=== PATIENT | female | born 1960 | race Caucasian/White ===

== ENCOUNTER → 2021-03-05 08:47 | Outpatient (CLI) | payer BC, SELFPAY ==
--- NOTE | ~2021-03-05 | CT_ITS ---
EXAMINATION: CT abdomen wo con EXAM DATE: 03/05/2021 09:05 INDICATION: Chronic idiopathic constipation . TECHNIQUE: Spiral CT of the abdomen was performed without contrast. Axial, coronal and sagittal shari ges of the abdomen were reviewed. The dose-length product (DLP) for this examination was 446.29 mGy- cm. The exposure was tailored according to patient size (auto mA exposure control), and iterative re construction (ASIR) was used as additional dose reduction technique. There is no prior study for katie huerta. FINDINGS: The liver, spleen, adrenal glands and pancreas are unremarkable. Gallbladder is unremarkab le. No biliary obstruction. There is a horseshoe kidney, congenital variant. There is no nephrolith iasis or hydronephrosis. There is no retroperitoneal lymphadenopathy. There is mild to moderate scattered arteriosclerotic disease. The appendix is normal. The stomach and small bowel are unremarkable. There is moderate amount of c olonic stool. There is moderate scattered colonic diverticulosis. There is no adjacent inflammatory change to suggest diverticulitis. No free intraperitoneal gas. The heart is normal in size. There are no pericardial or pleural effusions. The lung bases are unremarkable. There are no osteoblasti c or osteolytic lesions identified. Mild chronic appearing compression fracture of L1. IMPRESSION: 1. Moderate amount of colonic stool and scattered colonic diverticula. 2. Horseshoe kidney. Reviewed, dictated and finalized at location A. [employer] [employer]IS[employer]
== END ==
PROVIDERS: Visit Provider Nurse Practitioner Family
DX: K59.04 Chronic idiopathic constipation (principal); Q63.1 Lobulated, fused and horseshoe kidney
CPT/HCPCS: 74150

== ENCOUNTER 2021-08-08 15:53 | Outpatient (CLI) | payer BC, SELFPAY ==
[2021-08-08 16:13] LABS: Hematocrit 44.4 % (37.0-47.0); Hemoglobin 14.9 g/dL (12.0-15.0); Mean Corpuscular HGB Conc 33.6 g/dl (32-36); Mean Corpuscular Hemoglobin 30.9 pg (26-34); Mean Corpuscular Volume 92.1 fl (80-100); Mean Platelet Volume 10.2 fl (7.4-10.4); Platelet Count Result 194 k/mm3 (150-375); Red Blood Count 4.82 M/mm3 (4.2-5.4); Red Cell Distribution Width 12.8 % (11.5-14.5); White Blood Count 9.2 K/mm3 (4.5-10.0)
[2021-08-08 16:53] LABS: Appearance Urine Clear (Clear); Bilirubin Urine Negative (Negative); Blood Urine Negative (Negative); Color Urine Yellow (Yellow); Glucose Urine UA Negative (Negative); Ketones Urine Negative (Negative); Leukocyte Esterase Ur 1+ LEU/UL (Negative); Nitrate Urine Negative (Negative); Protein Urine Negative (Negative); Urobilinogen Urine 0.2 mg/dL (<2.0)
[2021-08-08 17:04] LABS: Bacteria Urine Trace /hpf; Mucus Urine Rare /lpf; Renal Epithelial Cells Urine Rare /hpf (None Seen); Squamous Epithelial Cell Urine Occasional /hpf (Few); WBC Urine 16-20 /hpf
[2021-08-08 17:05] LABS: Add Urine Microscopic? YES
[2021-08-08 19:57] LABS: Alanine Aminotransferase 232 U/L (6-35); Albumin Level 4.3 g/dL (3.5-5.1); Alkaline Phosphatase 118 U/L (38-126); Anion Gap 8 mmol/L (8-16); Aspartate Amino Transferase 215 U/L (14-36); Bilirubin,Total 0.7 mg/dL (0.2-1.3); Blood Urea Nitrogen 9 mg/dL (7-17); Carbon Dioxide 28 mmol/L (22-30); Chloride 103 mmol/L (98-107); Estimated Glomerular Filt Rate > 60; Glucose 181 mg/dL (65-110); Potassium 3.9 mmol/L (3.4-5.0); Sodium 139 mmol/L (137-145)
== END 2021-08-08 15:54 | disposition home or self-care (01) ==
LOC: ANHLAB 15:55
PROVIDERS: PCP Nurse Practitioner Family; Visit Provider Nurse Practitioner Family
DX: R74.8 Abnormal levels of other serum enzymes (principal); R11.2 Nausea with vomiting, unspecified; R10.11 Right upper quadrant pain
CPT/HCPCS: 36415; 80053; 81001; 85027; 87086

== ENCOUNTER 2021-08-12 15:19 | Outpatient (CLI) | payer BC, SELFPAY ==
[2021-08-12 16:01] LABS: Iron 139 ug/dL (37-170)
[2021-08-12 16:10] LABS: Percent Iron Saturation 47 % (20-50)
[2021-08-12 17:35] LABS: Hepatitis B Surface Antigen Negative (Negative)
[2021-08-12 17:41] LABS: HAV RESULT Negative (Negative); Hepatitis B Core IgM Result Negative (Negative)
[2021-08-12 17:53] LABS: Hepatitis C Virus Antibody Negative (Negative)
[2021-08-14 22:10] LABS: Alpha-1-Antitrypsin, QN 169 mg/dL (83-199); Ceruloplasmin 29 mg/dL (18-53)
[2021-08-15 12:42] LABS: Mitochondrial (M2) Ab (IgG) <=20.0 U (<=20.0)
[2021-08-16 11:31] LABS: LKM 1 Antibody <=20.0 U (<=20.0)
[2021-08-16 15:21] LABS: ALT 150 U/L (6-29); Alpha-2-Macroglobulin 313 mg/dL (106-279); Apolipoprotein A1 180 mg/dL (101-198); Fibrosis Score 0.57; Fibrosis Stage F2; GGT 202 U/L (3-65); Haptoglobin 84 mg/dL (43-212); Necroinflammat Act Grade A3; Total Bilirubin 0.5 mg/dL (0.2-1.2)
[2021-08-16 19:33] LABS: Alpha Fetoprotein Tumor Marker 5.1 ng/mL (<6.1)
== END 2021-08-12 15:20 | disposition home or self-care (01) ==
LOC: ANHLAB 15:21
PROVIDERS: PCP Nurse Practitioner Family; Visit Provider Nurse Practitioner Family
DX: R74.8 Abnormal levels of other serum enzymes (principal)
CPT/HCPCS: 36415; 80074; 81596; 82103; 82105; 82390; 82728; 83520; 83540; 83550; 86376

== ENCOUNTER 2021-08-19 09:50 | Emergency (ER) | payer BC, SELFPAY ==
[2021-08-19] VITALS (17 sets, daily range): BP systolic 113–160; BP diastolic 53–68; PULSE 79–96; RESP 11–26; TEMP 36.6; O2SAT 96–99
--- NOTE | ~2021-08-19 | CT_ITS ---
EXAMINATION: CT abdomen pelvis w con DATE: 08/19/2021 11:50 INDICATION: Epigastric abdominal pain. Elevated liver enzymes. TECHNIQUE: Computed tomography (CT) of the abdomen and pelvis was performed with 100 CC Omnipaque 300 intravenous contrast. Automated exposure control and iterative reconstruction technique were employe d. Exam dose: 422.93 mGy-cm total exam DLP. COMPARISON: 08/19/2021 right upper quadrant abdominal ultrasound examination, reported normal 03/05/2021 CT abdomen FINDINGS: The lung bases are clear of infiltrate or consolidation. Normal heart size. No pericardial or pleural effusion. There is patchy steatosis of the liver. No hepatic space-occupying mass lesion is evident. The gallbl adder is present. No gallbladder wall thickening or pericholecystic fluid or fat stranding. No bile d uct dilatation. Splenic size is within normal limits. Normal morphology of the adrenal glands. Horseshoe kidney. Approximately 1.4 x 2 cm right renal cyst. No urinary tract calculus or hydroureter onephrosis. The urinary bladder is unremarkable. Status post hysterectomy. There is atherosclerotic calcification of the abdominal aorta but no aneurysm. Presents, calcificatio n of the iliac and femoral arteries. 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 No intraperitoneal or retroperitoneal or pelvic mass lesion or adenopathy or ascites. Normal appendix. Diverticulosis of left and right colon; no CT evidence of diverticulitis. No bowel obstruction, bowel wall thickening, pneumatosis or intraperitoneal free air. Chronic mild anterior wedge compression fracture deformity of L1, present on 03/05/2021 is well. No marquez spicious osteolytic or osteoblastic lesions. IMPRESSION: Horseshoe kidney 1.4 x 2 cm right renal cyst Hepatic steatosis Status post hysterectomy Normal appendix Diverticulosis of the colon; no evidence of diverticulitis Chronic L1 mild compression fracture deformity Reviewed, dictated and finalized at Location [facility]. Reviewed, dictated and finalized at location B.
--- NOTE | ~2021-08-19 | US_ITS ---
EXAMINATION: US right upper quadrant DATE: 08/19/2021 10:45 INDICATION: Abdominal pain and vomiting TECHNIQUE: Multiple grayscale and Doppler ultrasound images of the abdomen were obtained. COMPARISON: None available FINDINGS: Bowel gas obscures visualization of the pancreas. The visualized portions of the pancreas a re unremarkable. The liver is normal with normal echogenicity and echotexture. No surface nodularity. Normal hepatopetal flow in the main portal vein. The gallbladder is normal with no abnormal wall thi ckening, pericholecystic fluid or stones. The normal common bile duct measures 3 mm. There was no son ographic Arora sign. IMPRESSION: 1. Normal sonographic study of the gallbladder. Reviewed, dictated and finalized at location A.
--- NOTE | 2021-08-19 10:30 | PC.NURSE ---
Patient off unit to US.
[2021-08-19] MEDS: MORPHINE SULFATE (*CRX) 4 MG/ML INJ IV PUSH (10:58)
[2021-08-19] MEDS: ONDANSETRON INJ 4 MG/2 ML VIAL IV PUSH ×2 (10:58→14:23)
[2021-08-19 11:09] LABS: Basophils Absolute Auto 0.1 K/mm3 (0.0-0.1); Basophils Percent Auto 0.4 % (0.2-1.2); Eosinophils Absolute Auto 0.1 K/mm3 (0-0.3); Eosinophils Percent Auto 0.4 % (0-4.4); Hematocrit 44.1 % (37.0-47.0); Immature Granulocyte Percent A 0.7 % (0-0.5); Lymphocytes Absolute Auto 1.86 K/mm3 (0.9-3.2); Lymphocytes Percent Auto 13.5 % (18.3-44.2); Mean Corpuscular Hemoglobin 30.7 pg (26-34); Mean Corpuscular Volume 90.2 fl (80-100); Mean Platelet Volume 10.7 fl (7.4-10.4); Monocytes Absolute Auto 0.9 K/mm3 (0.1-0.6); Monocytes Percent Auto 6.5 % (2.6-8.5); Neutrophils Absolute Auto 10.8 K/mm3 (1.3-6.7); Neutrophils Percent Auto 78.5 % (45.5-73.1); Platelet Count Result 167 k/mm3 (150-375); Red Blood Count 4.89 M/mm3 (4.2-5.4); Red Cell Distribution Width 12.6 % (11.5-14.5); White Blood Count 13.8 K/mm3 (4.5-10.0)
[2021-08-19 11:25] LABS: Appearance Urine Clear (Clear); Bilirubin Urine Negative (Negative); Color Urine Yellow (Yellow); Glucose Urine UA 1+ mg/dL (Negative); Ketones Urine Negative (Negative); Leukocyte Esterase Ur 2+ LEU/UL (Negative); Nitrate Urine Negative (Negative); Protein Urine Trace mg/dL (Negative); Specific Grav Ur 1.015 (1.001-1.035); pH Urine 7.5 (5.0-9.0)
[2021-08-19 11:27] LABS: Alanine Aminotransferase 144 U/L (6-35); Albumin Level 4.3 g/dL (3.5-5.1); Alkaline Phosphatase 151 U/L (38-126); Anion Gap 4 mmol/L (8-16); Aspartate Amino Transferase 103 U/L (14-36); Bilirubin,Total 0.6 mg/dL (0.2-1.3); Blood Urea Nitrogen 15 mg/dL (7-17); Calcium 8.6 mg/dL (8.4-10.2); Carbon Dioxide 30 mmol/L (22-30); Chloride 104 mmol/L (98-107); Estimated CRCL calculation 68 ml/min; Estimated Glomerular Filt Rate > 60; Glucose 204 mg/dL (65-110); Lipase 176 U/L (23-300); Potassium 4.1 mmol/L (3.4-5.0); Sodium 138 mmol/L (137-145)
[2021-08-19 11:27] LABS: Add Urine Microscopic? YES; Blood Urine Trace-Intact (Negative)
[2021-08-19 11:28] LABS: Bacteria Urine Trace /hpf; RBC Urine 0-2 /hpf (0-2); Squamous Epithelial Cell Urine Rare /hpf (Few)
--- NOTE | 2021-08-19 13:36 | ED.GENADULT ---
HPI - General Adult General Chief complaint: Abdominal Pain Stated complaint: liver enzymes high and vomiting Time Seen by Provider: 08/19/21 10:05 History of Present Illness HPI narrative: Patient is a 61-year-old female who presents ER with epigastric discomfort and nausea/vomiting. Ongoing for a couple months. Reports she has seen her PCP and her LFTs are elevated. She is scheduled for an ultrasound this weekend. No pain with eating or drinking. Occasionally discomfort goes into her back. No fevers or chills or sweats. Denies urinary frequency urgency or dysuria. Related Data Home Medications Medication Instructions Recorded Confirmed omeprazole 20 mg capsule,delayed 20 mg PO DAILY 08/16/21 08/16/21 release Allergies Allergy/AdvReac Type Severity Reaction Status Date / Time No Known Allergies Allergy Verified 08/19/21 10:58 Review of Systems Review of Systems: All systems reviewed & are unremarkable except as noted in HPI and below Constitutional: Constitutional: Denies chills, Denies fatigue and Denies fever(s) Cardiovascular: Cardiovascular: Denies chest pain and Denies rapid heart rate Respiratory: Respiratory: Denies chest congestion, Denies cough and Denies dyspnea Gastrointestinal: Gastrointestinal: Reports abdominal pain, Reports bloating, Reports nausea and Reports vomiting Genitourinary: Genitourinary: Denies nocturia, Denies dysuria and Denies flank pain Neurologic: Denies focal weakness and Denies numbness PMFSH Past Medical History Medical History (Updated 08/19/21 @ 13:44 by Matthew Cantu MD) Abdominal bloating Cataract associated with other syndromes Cervical vertebral fusion Elevated liver enzymes Nausea and vomiting Right upper quadrant pain Surgical History Surgical History (Updated 08/08/21 @ 14:57 by Ruddy Angeles) Hx of abdominal hysterectomy Social History Social History Smoking status: Former smoker Tobacco type: cigarettes Alcohol intake: current Alcohol use details: 1-2 times annually Substance use: never Substance use type: does not use Spiritual care concerns: No Exam Narrative: GENERAL: Well-appearing, well-nourished, and in no acute distress. HEAD: Normocephalic, atraumatic. ENT: Mucous membranes moist. CHEST: Clear to auscultation. No respiratory distress. HEART: Regular rate and rhythm. Normal peripheral pulses. ABDOMEN: Soft, nontender, nondistended. EXTREMITIES: Normal range of motion. No edema. SKIN: Warm, dry, no rash. NEURO: Alert and oriented x3. PSYCH: Normal mood and affect. Course Course Emergency Course: Nonsurgical abdomen on exam. Labs benign with exception of LFTs which are improved from earlier in the month. Ultrasound with fatty liver. Urine with a few whites with 2+ leuks and trace bacteria. Will send home on some Macrobid. Will increase omeprazole from 20 daily to 40 twice daily. Vital Signs Vital signs: Vital Signs Temperature 97.8 F 08/19/21 10:00 Pulse Rate 96 08/19/21 10:00 Respiratory Rate 26 H 08/19/21 10:00 Blood Pressure 160/68 H 08/19/21 10:00 Pulse Oximetry 98 08/19/21 10:00 Oxygen Delivery Room Air 08/19/21 10:00 Temperature 97.8 F 08/19/21 10:00 Pulse Rate 89 08/19/21 12:52 Respiratory Rate 14 08/19/21 12:52 Blood Pressure 141/63 H 08/19/21 11:01 Pulse Oximetry 96 08/19/21 12:52 Oxygen Delivery Room Air 08/19/21 10:00 Medical Decision Making Vital Signs Vital Signs: Vital Signs Temperature 97.8 F 08/19/21 10:00 Pulse Rate 96 08/19/21 10:00 Respiratory Rate 26 H 08/19/21 10:00 Blood Pressure 160/68 H 08/19/21 10:00 Pulse Oximetry 98 08/19/21 10:00 Oxygen Delivery Room Air 08/19/21 10:00 Temperature 97.8 F 08/19/21 10:00 Pulse Rate 89 08/19/21 12:52 Respiratory Rate 14 08/19/21 12:52 Blood Pressure 141/63 H 08/19/21 11:01 Pulse Oximetry 96 08/19/21 12:52 Oxygen Delivery Room Air 07/25
== END 2021-08-19 15:08 | disposition home or self-care (01) ==
PROVIDERS: Emergency Provider Emergency Medicine
DX: N39.0 Urinary tract infection, site not specified (principal); K21.9 Gastro-esophageal reflux disease without esophagitis; K76.0 Fatty (change of) liver, not elsewhere classified; Z87.891 Personal history of nicotine dependence; N28.1 Cyst of kidney, acquired; Q63.1 Lobulated, fused and horseshoe kidney; K57.90 Diverticulosis of intestine, part unspecified, without perforation or abscess without bleeding; H26.8 Other specified cataract; Z90.710 Acquired absence of both cervix and uterus
CPT/HCPCS: 36415; 74177; 76705; 80053; 81001; 83690; 85025; 87086; 87088; 96374; 96375; 96376; 99284; J2270; J2405; Q9967

== ENCOUNTER 2021-08-28 01:02 | Day surgery (SDC) | payer BC, SELFPAY ==
[2021-08-16 15:12] VITALS: BMI 30.3
--- NOTE | 2021-08-27 14:56 | PM.HPGS ---
History of Present Illness History of Present Illness Consent: Risks, benefits, and alternatives have been discussed and questions answered. Patient agrees to proceed with procedure. Chief complaint: nausea, vomiting, constipation Narrative: Zoila Senior is a 61 year old female With constipation, bloating gas, abdominal pain, vomiting, nausea and elevated liver enzymes.? she reports hx of chronic constipation for as long as she can remember.? States she will pass thin stools with straining and rectal pain.? She was started on Linzess 145 mg? daily.? Reports now having approximately 3 watery stools in the a.m. For the past 2 months she reports daily nausea with intermittent vomiting.?? she also has elevated liver enzymes for which she has been seen in our office and she has a follow-up appointment in about 7 weeks. Review of Systems Review of Systems: All systems reviewed & are unremarkable except as noted in HPI and below PMFSH Past Medical History Medical History Abdominal bloating Cataract associated with other syndromes Cervical vertebral fusion Elevated liver enzymes Nausea and vomiting Right upper quadrant pain Surgical History Surgical History Hx of abdominal hysterectomy S/P cervical spinal fusion Social History Social History Smoking status: Former smoker Tobacco type: cigarettes Alcohol intake: current Alcohol use details: 1-2 times annually Substance use: never Substance use type: does not use Spiritual care concerns: No Meds Home Medications and Allergies Home Medications Medication Instructions Recorded Confirmed Type sodium sul 1.479 gram-potas ch See Rx Instructions PO PER PKG DIR 08/12/21 08/28/21 Rx 0.188 gram-magnes sul 0.225 gram #24 tabs tablet (Sutab) linaclotide 72 mcg capsule 72 mcg PO DAILY #30 caps 08/13/21 08/28/21 Rx (Linzess) omeprazole 20 mg capsule,delayed 20 mg PO DAILY 08/16/21 08/28/21 History release omeprazole 40 mg capsule,delayed 40 mg PO BID #28 caps 08/19/21 08/28/21 Rx release Allergies Allergy/AdvReac Type Severity Reaction Status Date / Time No Known Allergies Allergy Verified 08/28/21 09:48 Exam Const: General: alert Orientation/consciousness: patient oriented x3 Resp: Auscultation: clear to auscultation bilaterally Cardio: Rhythm: regular rhythm GI: GI Palp: Yes Soft to palpation and No Tenderness to palpation present (GI) Neuro: General: patient oriented x3 Assessment and Plan Assessment and plan (1) Nausea and vomiting: Code(s): R11.2 - Nausea with vomiting, unspecified Status: Acute Assessment and Plan: EGD with possible biopsy or dilatation or cautery. (2) Change in bowel habits: Code(s): R19.4 - Change in bowel habit Status: Acute Assessment and Plan: Colonoscopy with possible biopsy or polypectomy or cautery or injection of substances.
[2021-08-28 09:51] VITALS: BP 118/52; PULSE 74; RESP 16; TEMP 36.7; O2SAT 99
--- NOTE | 2021-08-28 09:57 | WPDANESEPPF ---
Anes - Initial Pre Proc Eval Procedure: Operation Date: 08/28/21 11:15 Proposed Procedures p Esophagogastroduodenoscopy & Colonoscopy - Uvaldo Cruz MD Date/Time: 08/28/21 09:57 Surgeon: Uvaldo Cruz MD Pre Op Diagnosis: nausea, vomiting, constipation Patient Data Age: 61 Gender: F Height: 1.55 m Weight: 72.2 kg Last Vital Signs Temp 36.7 C 08/28/21 09:51 Pulse 74 08/28/21 09:51 Resp 16 08/28/21 09:51 BP 118/52 L 08/28/21 09:51 Pulse Ox 99 08/28/21 09:51 O2 Del Method Room Air 08/28/21 09:51 Allergies Allergy/AdvReac Type Severity Reaction Status Date / Time No Known Allergies Allergy Verified 08/28/21 09:48 Home Medications Medication Instructions Recorded Confirmed Type sodium sul 1.479 gram-potas ch See Rx Instructions PO PER PKG DIR 08/12/21 08/28/21 Rx 0.188 gram-magnes sul 0.225 gram #24 tabs tablet (Sutab) linaclotide 72 mcg capsule 72 mcg PO DAILY #30 caps 08/13/21 08/28/21 Rx (Linzess) omeprazole 20 mg capsule,delayed 20 mg PO DAILY 08/16/21 08/28/21 History release omeprazole 40 mg capsule,delayed 40 mg PO BID #28 caps 08/19/21 08/28/21 Rx release Patient hx anesthesia problems: none Family hx anesthesia problems: none Results Review: All pre-operative results and documents have been reviewed as part of the pre-operative evaluation. [facility] Past Medical History Medical History Abdominal bloating Cataract associated with other syndromes Cervical vertebral fusion Elevated liver enzymes Nausea and vomiting Right upper quadrant pain Surgical History Surgical History (Updated 08/28/21 @ 09:57 by Jose Robles MD) Hx of abdominal hysterectomy S/P cervical spinal fusion Social History Social History Smoking status: Former smoker Tobacco type: cigarettes Alcohol intake: current Alcohol use details: 1-2 times annually Substance use: never Substance use type: does not use Spiritual care concerns: No Anes - Eval Final PreProcedure Day of Procedure 08/28/21 09:57 Patient weight: obese Heart: regular rate and rhythm Lungs: clear to auscultation Airway: Mallampati scale class II Neurological: alert and oriented Last oral intake: >/= 8 hours ASA classification: II Emergent: no Anesthetic plan: proceed Anesthesia type and monitoring: general GIVS and standard monitoring Results Review: All pre-operative results and documents have been reviewed as part of the pre-operative evaluation. Informed Consent: The patient's anesthetic plan and its attendant risks and benefits were discussed with the patient/family/POA. Questions were solicited and answers provided to the satisfaction of the patient/family/POA.
[2021-08-28] MEDS: LACTATED RINGERS 1,000 ML 150 ML IV CONT (10:29)
--- NOTE | 2021-08-28 10:53 | SUR.OPER ---
EGD: [id number] Colonoscopy began at 1053
[2021-08-28 11:08] VITALS: BP 124/62; PULSE 74; RESP 22; O2SAT 100
[2021-08-28 11:18] VITALS: BP 152/85; PULSE 78; RESP 20; O2SAT 99
[2021-08-28 11:28] VITALS: BP 165/80; PULSE 72; RESP 20; O2SAT 99
== END 2021-08-28 11:39 | disposition home or self-care (01) ==
PROVIDERS: Visit Provider Internal Medicine Gastroenterology
PROC: 0DJ08ZZ Inspection of Upper Intestinal Tract, Via Natural or Artificial Opening Endoscopic (ICD-10-PCS; CPT 43235; principal; 2021-08-28 11:15)
DX: Z12.11 Encounter for screening for malignant neoplasm of colon (principal); K63.5 Polyp of colon; K57.30 Diverticulosis of large intestine without perforation or abscess without bleeding; R10.11 Right upper quadrant pain; R11.2 Nausea with vomiting, unspecified; K21.9 Gastro-esophageal reflux disease without esophagitis; K59.00 Constipation, unspecified; Z98.1 Arthrodesis status; R14.0 Abdominal distension (gaseous); R74.01 Elevation of levels of liver transaminase levels; Z87.891 Personal history of nicotine dependence; E66.9 Obesity, unspecified; Z68.30 Body mass index [BMI] 30.0-30.9, adult
CPT/HCPCS: 45380; 43239; 87081; 88305; J2704; J7120

== ENCOUNTER 2021-09-26 09:54 | Outpatient (CLI) | payer BC, SELFPAY ==
[2021-09-26 11:18] LABS: CRP 0.5 mg/dL (<1.0)
[2021-09-26 11:28] LABS: Erythrocyte Sedimentation Rate 13 mm/hr (0-20)
[2021-09-26 11:32] LABS: Iron 123 ug/dL (37-170)
[2021-09-26 11:41] LABS: Percent Iron Saturation 42 % (20-50)
== END 2021-09-26 09:55 | disposition home or self-care (01) ==
LOC: ANHLAB 09:56
PROVIDERS: Visit Provider Nurse Practitioner Family
DX: R14.0 Abdominal distension (gaseous) (principal); R74.8 Abnormal levels of other serum enzymes; R10.11 Right upper quadrant pain
CPT/HCPCS: 36415; 81256; 82728; 83540; 83550; 85652; 86140

== ENCOUNTER 2021-10-07 09:50 | Outpatient (CLI) | payer BC, SELFPAY ==
--- NOTE | ~2021-10-07 | NM_ITS ---
EXAMINATION: NM hepatobiliary wo pharm DATE: 10/07/2021 12:25 CDT INDICATION: Right upper quadrant pain COMPARISON: None. TECHNIQUE: 4.8 mCi Tc-99m mebrofenin (Choletec) was administered intravenously. Scintigraphic images of the abdomen were obtained for one hour. At the 1 hour time point, the patient drank 8 oz Ensure, and imaging was continued for 60 minutes. Gallbladder ejection fraction was calculated by the technol ogist. FINDINGS: There is normal clearance of radiotracer from the blood pool. There is homogeneous tracer u ptake by the liver. Activity progresses to the bowel and gallbladder. The gallbladder ejection fract ion is 32%. Note that with this technique, normal GBEF >= 33%. IMPRESSION: 1. Mildly decreased gallbladder ejection fraction measuring 32%. Reviewed, dictated and finalized at location B.
== END 2021-10-07 09:51 | disposition home or self-care (01) ==
LOC: ANHIMG 09:53
PROVIDERS: Visit Provider Nurse Practitioner Family
DX: R10.11 Right upper quadrant pain (principal)
CPT/HCPCS: 78226; A9537

== ENCOUNTER 2021-10-15 10:27 | Outpatient (CLI) | payer BC, SELFPAY ==
[2021-10-15 11:09] LABS: Appearance Urine Clear (Clear); Bilirubin Urine Negative (Negative); Blood Urine Negative (Negative); Color Urine Yellow (Yellow); Glucose Urine UA Negative (Negative); Ketones Urine Negative (Negative); Leukocyte Esterase Ur 3+ LEU/UL (Negative); Nitrate Urine Negative (Negative); Protein Urine Negative (Negative)
[2021-10-15 11:15] LABS: Mucus Urine Rare /lpf; RBC Urine 0-2 /hpf (0-2); Squamous Epithelial Cell Urine Moderate /hpf (Few)
[2021-10-15 11:15] LABS: Alanine Aminotransferase 143 U/L (6-35); Albumin Level 4.5 g/dL (3.5-5.1); Alkaline Phosphatase 143 U/L (38-126); Aspartate Amino Transferase 140 U/L (14-36)
[2021-10-15 11:17] LABS: Add Urine Microscopic? YES
[2021-10-15 11:41] LABS: Iron 159 ug/dL (37-170)
[2021-10-15 12:00] LABS: Percent Iron Saturation 54 % (20-50)
[2021-10-17 21:49] LABS: Actin Antibody (IgG) <20 U (<20)
== END 2021-10-15 10:28 | disposition home or self-care (01) ==
PROVIDERS: Visit Provider Nurse Practitioner Family
DX: K76.0 Fatty (change of) liver, not elsewhere classified (principal); R30.9 Painful micturition, unspecified; R74.8 Abnormal levels of other serum enzymes
CPT/HCPCS: 36415; 80076; 81001; 82728; 83516; 83540; 83550

== ENCOUNTER 2021-10-29 09:30 | Outpatient (CLI) | payer BC, SELFPAY ==
--- NOTE | ~2021-10-29 | NM_ITS ---
EXAM: NM gastric emptying study DATE: 10/29/2021 14:06 INDICATION: Nausea. Abdominal pain. Bloating after eating. TECHNIQUE: A gastric emptying study was performed using the methodology of Savanah CORTES, et al. J Nucl Med 2007; 48:568-572. The patient was given a meal consisting of 2 scrambled eggs labeled with 0.955 mCi Tc-99m sulfur colloid, 2 slices of toast, two packages of jam, and approximately 120 mL of water . Simultaneous anterior and posterior 1-min images of the abdomen were obtained with the patient supi ne at multiple time points over a total period of 4 hours. The geometric mean of anterior and posteri or views was determined, and the percentage retention was calculated for each time point. COMPARISON: None. FINDINGS: Gastric retention of the radiotracer-labeled meal was 64%, 35%, and 3% at the 1-hour, 2-hour, and 4-h our time points, respectively. With this technique, apparent rapid gastric emptying is suggested by < 30% gastric retention at 1 hour. Delayed gastric emptying is defined by gastric retention of >90% at 1 hour, >60% retention at 2 hours, or >10% retention at 4 hours. IMPRESSION: 1. Normal gastric emptying. Reviewed, dictated and finalized at location A. IMPRESSION: 1. Normal gastric emptying.
== END 2021-10-29 09:31 | disposition home or self-care (01) ==
LOC: ANHIMG 09:33
PROVIDERS: PCP Family Medicine; Visit Provider Nurse Practitioner Family
DX: R14.0 Abdominal distension (gaseous) (principal); R11.0 Nausea
CPT/HCPCS: 78264; A9541

== ENCOUNTER 2021-11-12 08:31 | Outpatient (CLI) | payer BC, SELFPAY ==
--- NOTE | 2021-11-12 08:39 | ECG_ITS ---
Measurements Intervals [place] Rate: 68 P: -20 FL: 121 QRS: -8 QRSD: 85 T: 23 QT: 387 QTc: 413 Interpretive Statements SINUS RHYTHM LOW QRS VOLTAGE IN PRECORDIAL LEADS POOR R WAVE PROGRESSION, CONSIDER ANTERIOR INFARCT BASELINE ARTIFACT- I, II, III, AVR, AVL, AVF ABNORMAL ECG NO PREVIOUS ECG AVAILABLE FOR COMPARISON Electronically Signed On 11-12-2021 9:50:33 CDT by Wilmer Tellez D.O.
[2021-11-12 09:18] LABS: Prothrombin Time 13.1 Seconds (11.1-14.7)
[2021-11-12 09:19] LABS: Partial Thromboplastin Time 32.5 SECONDS (22.3-36.8)
[2021-11-12 09:46] LABS: Anion Gap 9 mmol/L (8-16); Blood Urea Nitrogen 4 mg/dL (7-17); Carbon Dioxide 28 mmol/L (22-30); Chloride 103 mmol/L (98-107); Estimated Glomerular Filt Rate > 60; Glucose 193 mg/dL (65-110); Potassium 4.5 mmol/L (3.4-5.0); Sodium 140 mmol/L (137-145)
[2021-11-12 09:49] LABS: Alanine Aminotransferase 149 U/L (6-35); Albumin Level 4.3 g/dL (3.5-5.1); Alkaline Phosphatase 130 U/L (38-126); Amylase 70 U/L (30-110); Aspartate Amino Transferase 161 U/L (14-36); Bilirubin,Total 0.8 mg/dL (0.2-1.3); Lipase 134 U/L (23-300)
== END 2021-11-12 08:32 | disposition home or self-care (01) ==
PROVIDERS: Anesthesiology; PCP Family Medicine; Visit Provider Surgery
DX: K81.1 Chronic cholecystitis (principal); K76.0 Fatty (change of) liver, not elsewhere classified; Z87.891 Personal history of nicotine dependence; Z01.818 Encounter for other preprocedural examination; R94.31 Abnormal electrocardiogram [ECG] [EKG]
CPT/HCPCS: 36415; 80048; 80076; 82150; 83690; 85610; 85730; 86850; 86900; 86901; 93005

== ENCOUNTER 2021-11-13 01:29 | Day surgery (SDC) | payer BC, SELFPAY ==
[2021-11-08 13:02] VITALS: BMI 29.8
--- NOTE | 2021-11-08 13:17 | PC.NURSE ---
Report to the Outpatient Waiting Room, entrance under the green pavilion located off [facility], at time 11:30 on date 11/13/21. OR Time: 1:30. Time changes happen often and if your time is changed the preop area will call you the afternoon before. - You and your visitor will be asked to self-screen and do not enter if you have any COVID symptoms. - Only one visitor and NO children visitors are allowed at this time. - The patient visitor is requested to leave or wait in car when not with patient due to restrictions. - A mask is required within the hospital. Patients may have clear liquids (water, carbonated beverages, clear teas, apple juice) until 3 hours prior to surgery (10:30) with a maximum of 20 ounces. - No food from midnight until time of surgery Take the following medications with a SIP of water the morning of surgery: NONE Medications to discontinue per physician: VITAMINS/SUPPLEMENTS Date to take last dose: 11/09/21 Please no make-up, nail greek, hairspray, perfume, deodorant, or body powder the day of surgery. No jewelry (including any body piercings) or valuables the day of surgery, leave them at home. Please take a shower or bath the night before, or the morning of, surgery with an antibacterial soap (HIBICLENS). Wear comfortable, loose fitting clothing. - Jewelry must be removed prior to entering the operating room. Rings and piercings that are not removed may be cut off. - The hospital will not accept responsibility for valuables. - Please leave all valuables, including medications, at home the day of surgery. If you are going home after surgery, a licensed screw driver operator must drive you home. - NO public transportation without another adult. - We recommend that an adult stay with you for 24 hours following discharge. - We also recommend that you do not drive, make important decision, drink alcoholic beverages, or take any drugs that were not prescribed by your health care provider for at least 24 hours after your discharge time. Follow any additional instructions given to you from your surgeon. If you or anyone in your household have experienced Covid symptoms in the past week, please notify your surgeon or the nurse liaison at the phone number below for possible testing. Telephone instructions given to PT Nancie WALTER MAY and asked if any additional questions and then verbalized understanding. Patient advised to call surgeon office or pre surgery nurse liaison [phone] if any additional questions.
--- NOTE | 2021-11-12 12:03 | P.PNAN_ITS ---
Anes - Initial Pre Proc Eval Procedure: Operation Date: 11/13/21 13:30 Proposed Procedures p Laparoscopic Cholecystectomy with Truecut Liver Biopsy - Kacy Suggs MD Date/Time: 11/12/21 12:03 Surgeon: Kacy Suggs MD Pre Op Diagnosis: chronic cholecystitis, Patient Data Age: 61 Gender: F Height: 1.55 m Weight: 71.67 kg Allergies Allergy/AdvReac Type Severity Reaction Status Date / Time No Known Allergies Allergy Verified 11/13/21 12:07 Home Medications Medication Instructions Recorded Confirmed Type melatonin 10 mg tablet 10 mg PO HS PRN Insomnia 11/06/21 11/08/21 History Patient hx anesthesia problems: none Family hx anesthesia problems: none Results Review: All pre-operative results and documents have been reviewed as part of the pre- operative evaluation. [facility] Past Medical History Medical History (Updated 11/04/21 @ 13:30 by Cheyenne Lawrence, [facility]) Abdominal bloating Cataract associated with other syndromes Cervical vertebral fusion Elevated liver enzymes Hepatic steatosis biopsy pending Nausea Nausea and vomiting Painful urination Right upper quadrant pain Surgical History Surgical History H/O laparoscopy Hx of abdominal hysterectomy S/P cervical spinal fusion Family History Family History Other Cancer Cerebrovascular accident Diabetes mellitus Heart disease Hypertension Social History Social History Smoking packs per day: 1 Smoking cigarettes per day: 20.0 Years smoked: 20 Smoking pack-years: 20.00 Smoking status: Former smoker Tobacco type: cigarettes Smoking end date: 02/23/91 Alcohol intake: never Substance use: never Substance use type: does not use Living arrangements: with family Spiritual care concerns: No Anes - Eval Final PreProcedure Day of Procedure 11/12/21 12:03 Patient weight: obese Heart: regular rate and rhythm Lungs: clear to auscultation Airway: Mallampati scale class II Neurological: alert and oriented Last oral intake: >/= 8 hours ASA classification: II Emergent: no Anesthetic plan: proceed Anesthesia type and monitoring: general ETT and standard monitoring Results Review: All pre-operative results and documents have been reviewed as part of the pre- operative evaluation. Informed Consent: The patient's anesthetic plan and its attendant risks and benefits were discussed with the patient/family/POA. Questions were solicited and answers provided to the satisfaction of the patient/family/POA.
[2021-11-13] VITALS (10 sets, daily range): BP systolic 124–161; BP diastolic 53–82; PULSE 72–99; RESP 16–18; TEMP 36.6; O2SAT 92–99
[2021-11-13] MEDS: SCOPOLAMINE 1.5 MG PATCH TRANSDERM (12:12)
[2021-11-13] MEDS: LACTATED RINGERS 1,000 ML 30 ML IV CONT ×2 (12:13→14:47)
[2021-11-13] MEDS: KETOROLAC 15 MG/ML VIAL (*BKC) IV PUSH (12:14)
[2021-11-13] MEDS: ACETAMINOPHEN 500 MG TABLET 1000 MG PO (12:17)
[2021-11-13 12:23] LABS: Glucose Point of Care 103 mg/dl (65-105)
--- NOTE | 2021-11-13 13:01 | WPDHPUPDATE1 ---
History and Physical Update Update Date/Time: 11/13/21 13:01 History and Physical has been reviewed, including an updated exam of the patient. There are NO changes in the patient's condition. Risks, benefits, and alternatives have been discussed and questions answered. Patient agrees to proceed with procedure.
[2021-11-13] MEDS: ceFAZolin 2 GM/D5W 50 ML 2 GM/50 ML BAG IVPB (13:08)
[2021-11-13] MEDS: BUPIVACAINE/EPINEPHRINE 0.25% 50 ML VIAL 30 ML INFILTRATE (13:35)
--- NOTE | 2021-11-13 14:03 | W.PM.PROC2 ---
Procedure Note - Detailed Date of Procedure 11/13/21 Pre-op Diagnosis chronic cholecystitis, elevated liver function tests Post-op Diagnosis Same Procedure Performed laparoscopic cholecystectomy, Tamir-Cut liver biopsy Surgeon Kacy Suggs MD Anesthesia General Indications 61-year-old female with longstanding issues of postprandial right upper quadrant pain associated with nausea and bloating. Extensive workup, including imaging and nuclear medicine imaging, consistent with chronic cholecystitis. Patient also noted to have changes of hepatic steatosis and elevated transaminases. Findings Chronic cholecystitis, fatty and nodular appearing liver Description of Procedure The patient was taken to the operating room placed in the supine position. After adequate induction of general anesthesia, the patient was prepped and draped in normal sterile fashion. A time-out was then performed to verify the patient's identity as well as the procedure being performed. I then made a 5 mm incision in the infraumbilical region. Through this, a Veress needle was placed into the peritoneal cavity and CO2 gas was then insufflated. After adequate pneumoperitoneum was achieved, the Veress needle was removed and a 5 mm optiview trocar was placed through this incision under direct visualization. I then placed the laparoscope through this trocar site and under direct visualization placed a further 12 mm subxiphoid port as well as 2 additional 5 mm ports in the right upper abdomen. The gallbladder was then identified and was noted to be moderately inflamed and distended. I was able to place a grasper at the dome of the gallbladder and this was retracted anterior and cephalad up over the liver. A 2nd retractor was then placed at the infundibulum and retracted laterally, this allowed visualization of the triangle of Calot. I then was able to visualize the cystic duct in its entirety from its proximal insertion into the gallbladder, to its distal junction with the common hepatic/common bile duct junction. At this point, I carefully skeletonized the proximal cystic duct with the [place] dissector. I then clipped and transected the proximal cystic duct. Next I visualized the cystic artery. Again the artery was skeletonized, clipped, and transected. I then used the Bovie cautery to take down the peritoneal attachments of the gallbladder off the liver bed. Once the gallbladder specimen was completely detached, an endo-pouch was placed through the 12 mm port site. I then placed the gallbladder specimen into the Endo pouch and removed the endo-pouch from the 12 mm port site. The specimen will now be sent to pathology for further review. I then copiously irrigated the right upper quadrant. Some mild oozing was noted in the liver bed and this was controlled with the bovie cautery. Hemostasis was noted in the liver bed, the clips were noted to be in good position on both the cystic duct stump and the cystic artery stump. The liver was noted to be nodular and fatty appearing with multiple noted adhesion to the anterior abdominal wall. I then made a small incision in the right upper quadrant to place the true cut needle. Under direct visualization, I then took multiple liver biopsies. This was sent to pathology for further review. I then gained hemostasis with the Bovie cautery. I then moved the laparoscope to the subxiphoid port. No iatrogenic injury or other pathology was noted in the lower abdomen. I then closed the 12 mm trocar site under direct visualization using the Al cone and 0 Vicryl suture. At this point, the abdomen was desufflated and all ports removed. All port sites were then closed with 4.O Monocryl subcuticular sutures. Dermabond was placed on each incision. The patient tolerated the procedure well, was extubated in the operating room postoperative and will be transferred to the recovery room in stable condition Estimated Blood Loss 40 Drains No Packing
[2021-11-13] MEDS: fentaNYL CITRATE INJ (*CRX) 100 MCG/2 ML VIAL 25 MCG IV PUSH ×8 (14:22→16:40)
[2021-11-13] MEDS: ONDANSETRON INJ 4 MG/2 ML VIAL IV PUSH (15:32)
[2021-11-13] MEDS: oxyCODONE HCL (*CRX) 5 MG TAB IR PO (15:32)
== END 2021-11-13 17:00 | disposition home or self-care (01) ==
PROVIDERS: PCP Family Medicine; Visit Provider Surgery
PROC: 0FT44ZZ Resection of Gallbladder, Percutaneous Endoscopic Approach (ICD-10-PCS; CPT 47562; principal; 2021-11-13 13:30)
DX: K81.1 Chronic cholecystitis (principal); K74.60 Unspecified cirrhosis of liver; K76.0 Fatty (change of) liver, not elsewhere classified; R74.01 Elevation of levels of liver transaminase levels; Z98.1 Arthrodesis status; Z87.891 Personal history of nicotine dependence; E66.9 Obesity, unspecified; Z68.29 Body mass index [BMI] 29.0-29.9, adult
CPT/HCPCS: 47562; 47379; 82948; 88304; 88307; 88312; 88313; A9270; J0690; J1100; J1885; J2250; J2405; J2704; J3010; J7030; J7120

== ENCOUNTER 2021-11-27 11:09 | Outpatient (CLI) | payer BC, SELFPAY ==
[2021-11-27 11:26] LABS: Hematocrit 43.2 % (37.0-47.0); Hemoglobin 14.7 g/dL (12.0-15.0); Mean Corpuscular Hemoglobin 31.7 pg (26-34); Mean Corpuscular Volume 93.1 fl (80-100); Mean Platelet Volume 9.9 fl (7.4-10.4); Platelet Count Result 190 k/mm3 (150-375); Red Blood Count 4.64 M/mm3 (4.2-5.4); White Blood Count 8.6 K/mm3 (4.5-10.0)
[2021-11-27 11:42] LABS: Alanine Aminotransferase 142 U/L (6-35); Albumin Level 4.2 g/dL (3.5-5.1); Alkaline Phosphatase 119 U/L (38-126); Anion Gap 9 mmol/L (8-16); Aspartate Amino Transferase 220 U/L (14-36); Bilirubin,Total 0.7 mg/dL (0.2-1.3); Blood Urea Nitrogen 9 mg/dL (7-17); Calcium 9.1 mg/dL (8.4-10.2); Carbon Dioxide 28 mmol/L (22-30); Chloride 103 mmol/L (98-107); Estimated Glomerular Filt Rate > 60; Glucose 188 mg/dL (65-110); Sodium 140 mmol/L (137-145)
[2021-11-27 11:48] LABS: INR 1.1; Prothrombin Time 13.5 Seconds (11.1-14.7)
[2021-12-02 15:59] LABS: Alpha Fetoprotein Tumor Marker 4.7 ng/mL (<6.1)
== END 2021-11-27 11:10 | disposition home or self-care (01) ==
PROVIDERS: PCP Family Medicine; Visit Provider Nurse Practitioner Family
DX: K74.60 Unspecified cirrhosis of liver (principal)
CPT/HCPCS: 36415; 80053; 82105; 85027; 85610